=== PATIENT | male | born 1960 | race African-American/Black ===

== ENCOUNTER 2020-04-26 14:14 | Inpatient (IN) | payer MEDICARE, BC ==
[~2020-04-26] VITALS: Ht 185.4 cm; Wt 114.6 kg
[~2020-04-26 14:14] MED LIST: ALBU6.7H11 INH; AMIODARONE PO; ATOR20TA65 PO; BISA-81 PO; BISACODYL; FOLI-43 PO; FURO80TA3 PO; MAGN400C PO; METF-416 PO; METO-411 PO; SERT25TA74 PO; SPIR25TA6 PO; VALS80TA2 PO
[2020-04-26 14:53] LABS: BASOPHILS % 0.6 % (0.0-2.0); EOSINOPHILS % 2.9 % (0.0-5.0); HEMATOCRIT. 31.2 % (42.0-52.0); HEMOGLOBIN. 10.5 g/dL (14.0-18.0); LYMPHOCYTES % 10.9 % (20.0-50.0); MEAN CORPUSCULAR HEMOGLOBIN 30.6 pg (28.0-32.0); MEAN CORPUSCULAR VOLUME 91.3 fL (80.0-94.0); MEAN PLATELET VOLUME 8.4 fl (7.4-10.4); MONOCYTES % 9.6 % (2.0-8.0); PLATELET 137 x1000/uL (130-400); RED BLOOD CELL COUNT 3.42 mill/uL (4.7-6.1); RED CELL DISTRIBUTION WIDTH 15.9 % (11.6-14.6)
[2020-04-26 14:59] LABS: CHLORIDE 98 mEq/L (98-107)
[2020-04-26] MEDS ORDERED: SODIUM CHLORIDE 0.9% 1,000 ML IV ONE (15:00)
[2020-04-26 15:40] LABS: INR 1.1; PROTHROMBIN TIME 12.1 sec (9.6-11.0)
[2020-04-26] MEDS ORDERED: PIPERACILLIN/TAZ 3.375G PREMIX 50 ML IV ONE (16:00)
[2020-04-26] MEDS ORDERED: VANCOMYCIN 1 G PREMIX 200 ML IV ONE (16:00)
[2020-04-26] MEDS ORDERED: NOREPINEPHRINE 8MG/250ML PMX 250 ML IV STA (16:02)
[2020-04-26] MEDS: NOREPINEPHRINE 8 MG in DEXTROSE 5% WATER 250 ML IV PRN ×2 (17:09→22:57)
[2020-04-26 17:12] LABS: CLARITY URINE CLEAR (CLEAR); COLOR URINE YELLOW (YELLOW); KETONES URINE NEGATIVE (NEGATIVE); LEUKOCYTE ESTERASE URINE NEGATIVE (NEGATIVE); NITRITE URINE NEGATIVE (NEGATIVE); OCCULT BLOOD URINE NEGATIVE (NEGATIVE); PH URINE 6.5 (4.5-8.0); PROTEIN URINE NEGATIVE (NEGATIVE); SPECIFIC GRAVITY URINE 1.011 (1.005-1.030)
[2020-04-26] MEDS ORDERED: POTASSIUM CHLORIDE 20MEQ TABLET SR PO SCH (23:15)
[2020-04-26] MEDS ORDERED: ONDANSETRON HCL 4MG/2ML INJ IV PRN (23:15)
[2020-04-26] MEDS ORDERED: IPRATROPIUM/ALBUTEROL 0.5-3(2.5)MG/3ML NEB HHN PRN (23:15)
[2020-04-26] MEDS ORDERED: MAGNESIUM/ALUMINUM HYDROXIDE/SIMETHICONE 30ML UDC PO PRN (23:15)
[2020-04-26] MEDS ORDERED: DOCUSATE SODIUM 100MG CAPSULE PO PRN (23:15)
[2020-04-26] MEDS ORDERED: ENOXAPARIN 40MG/0.4ML SYR SUBCUT SCH (23:15)
[2020-04-26] MEDS ORDERED: ACETAMINOPHEN 325MG TABLET PO PRN (23:15)
[2020-04-27] VITALS (56 sets, daily range): BP systolic 63–126; BP diastolic 18–79
[2020-04-27] MEDS: HYDROCODONE/ACETAMINOPHEN 5/325MG TABLET PO PRN (01:38)
[2020-04-27] MEDS: NOREPINEPHRINE 8 MG in DEXTROSE 5% WATER 250 ML IV PRN (04:41)
[2020-04-27 06:36] LABS: BASOPHILS % 0.5 % (0.0-2.0); EOSINOPHILS % 2.3 % (0.0-5.0); HEMATOCRIT. 32.9 % (42.0-52.0); LYMPHOCYTES % 16.7 % (20.0-50.0); MEAN CORPUSCULAR HEMOGLOBIN 30.4 pg (28.0-32.0); MONOCYTES % 9.2 % (2.0-8.0); NEUTROPHILS % 71.3 % (40.0-76.0); PLATELET 145 x1000/uL (130-400); RED BLOOD CELL COUNT 3.61 mill/uL (4.7-6.1); RED CELL DISTRIBUTION WIDTH 15.8 % (11.6-14.6)
[2020-04-27 06:54] LABS: CREATINE KINASE MB FRACTION 1.5 ng/mL (0.5-3.6)
[2020-04-27] MEDS ORDERED: ENOXAPARIN 40MG/0.4ML SYR SUBCUT SCH (09:00)
[2020-04-27] MEDS ORDERED: NOREPINEPHRINE 8MG/250ML PMX 250 ML IV PRN (09:30)
[2020-04-27 09:37] LABS: *BENZODIAZEPINES SCREEN URINE NEGATIVE (NEGATIVE); *COCAINE SCREEN URINE NEGATIVE (NEGATIVE); METHADONE URINE SCREEN NEGATIVE (NEGATIVE)
[2020-04-27 09:38] LABS: *AMPHETAMINES SCREEN URINE NEGATIVE (NEGATIVE); *BARBITURATES SCREEN URINE NEGATIVE (NEGATIVE); CANNABINOID URINE SCREEN NEGATIVE (NEGATIVE); OPIATES URINE SCREEN NEGATIVE (NEGATIVE); PHENCYCLIDINE URINE SCREEN NEGATIVE (NEGATIVE)
[2020-04-27] MEDS ORDERED: SODIUM CHLORIDE 0.9% 1,000 ML IV SCH (10:15)
[2020-04-27] MEDS: NOREPINEPHRINE 8 MG in DEXT 5% WATER 242 ML IV PRN ×2 (10:34→18:37)
[2020-04-27] MEDS ORDERED: MAGNESIUM 2 G PREMIX 50 ML IV NR (11:00)
[2020-04-27 15:06] LABS: CHLORIDE 100 mEq/L (98-107)
[2020-04-27] MEDS ORDERED: ENOXAPARIN 60MG/0.6ML SYR SUBCUT NR (15:15)
[2020-04-27] MEDS: MEXILETINE HCL 150MG CAPSULE PO SCH ×2 (17:19→21:22)
[2020-04-27] MEDS: ENOXAPARIN 120MG/0.8ML SYR SUBCUT SCH (21:23)
[2020-04-28] VITALS (150 sets, daily range): BP systolic 61–149; BP diastolic 19–99
[2020-04-28] MEDS: MEXILETINE HCL 150MG CAPSULE PO SCH ×3 (05:44→21:05)
[2020-04-28 06:07] LABS: BASOPHILS % 0.4 % (0.0-2.0); EOSINOPHILS % 5.4 % (0.0-5.0); HEMATOCRIT. 30.5 % (42.0-52.0); HEMOGLOBIN. 10.3 g/dL (14.0-18.0); LYMPHOCYTES % 20.4 % (20.0-50.0); MEAN CORPUSCULAR VOLUME 91.7 fL (80.0-94.0); MEAN PLATELET VOLUME 8.7 fl (7.4-10.4); MONOCYTES % 9.2 % (2.0-8.0); NEUTROPHILS % 64.6 % (40.0-76.0); PLATELET 130 x1000/uL (130-400); RED BLOOD CELL COUNT 3.33 mill/uL (4.7-6.1); RED CELL DISTRIBUTION WIDTH 15.9 % (11.6-14.6)
[2020-04-28] MEDS: AMIODARONE HCL 200 MG TABLET PO SCH (09:44)
[2020-04-28] MEDS: ENOXAPARIN 120MG/0.8ML SYR SUBCUT SCH ×2 (09:44→20:38)
[2020-04-28] MEDS ORDERED: SODIUM PHOS,M-BASIC-D-BASIC 20 MM in DEXT 5% WATER 243.3333 ML IV SCH (11:00)
[2020-04-28] MEDS: HYDROCODONE/ACETAMINOPHEN 5/325MG TABLET PO PRN (18:00)
[2020-04-29] VITALS (62 sets, daily range): BP systolic 89–142; BP diastolic 51–110
[2020-04-29] MEDS: HYDROCODONE/ACETAMINOPHEN 5/325MG TABLET PO PRN ×4 (00:18→20:10)
[2020-04-29] MEDS: MEXILETINE HCL 150MG CAPSULE PO SCH ×3 (05:12→21:31)
[2020-04-29 06:40] LABS: BASOPHILS % 0.4 % (0.0-2.0); EOSINOPHILS % 6.5 % (0.0-5.0); HEMATOCRIT. 28.7 % (42.0-52.0); HEMOGLOBIN. 9.7 g/dL (14.0-18.0); LYMPHOCYTES % 21.6 % (20.0-50.0); MEAN CORPUSCULAR HEMOGLOBIN 31.1 pg (28.0-32.0); MEAN PLATELET VOLUME 8.7 fl (7.4-10.4); MONOCYTES % 12.2 % (2.0-8.0); NEUTROPHILS % 59.3 % (40.0-76.0); PLATELET 136 x1000/uL (130-400); RED BLOOD CELL COUNT 3.12 mill/uL (4.7-6.1); RED CELL DISTRIBUTION WIDTH 15.9 % (11.6-14.6)
[2020-04-29 07:06] LABS: PHOSPHORUS 2.8 mg/dL (2.5-4.9)
[2020-04-29] MEDS: AMIODARONE HCL 200 MG TABLET PO SCH (08:49)
[2020-04-29] MEDS: ENOXAPARIN 120MG/0.8ML SYR SUBCUT SCH ×2 (09:04→20:09)
[2020-04-29] MEDS: CYCLOBENZAPRINE 10MG TABLET PO SCH ×2 (13:10→21:31)
[2020-04-30] VITALS (26 sets, daily range): BP systolic 89–122; BP diastolic 51–76
[2020-04-30] MEDS: MEXILETINE HCL 150MG CAPSULE PO SCH (05:27)
[2020-04-30] MEDS: CYCLOBENZAPRINE 10MG TABLET PO SCH (05:39)
[2020-04-30 07:09] LABS: PHOSPHORUS 2.4 mg/dL (2.5-4.9)
[2020-04-30 09:35] LABS: BASOPHILS % 0.8 % (0.0-2.0); EOSINOPHILS % 4.4 % (0.0-5.0); HEMATOCRIT. 27.8 % (42.0-52.0); MEAN CORPUSCULAR HEMOGLOBIN 30.7 pg (28.0-32.0); MEAN CORPUSCULAR VOLUME 94.4 fL (80.0-94.0); MEAN PLATELET VOLUME 8.9 fl (7.4-10.4); MONOCYTES % 14.1 % (2.0-8.0); NEUTROPHILS % 59.7 % (40.0-76.0); PLATELET 127 x1000/uL (130-400); RED BLOOD CELL COUNT 2.94 mill/uL (4.7-6.1); RED CELL DISTRIBUTION WIDTH 15.7 % (11.6-14.6)
[2020-05-11] MEDS ORDERED: SERT25TA74 PO (11:23)
== END 2020-04-30 06:00 | disposition short-term general hospital (02) | DRG 308 ==
LOC: ER 14:37 → MICUSO 16:05 → EDBEDREQTM 16:07 → EDBEDREQ 16:07 → EDBEDREQSVC 18:30 → 5EST 04-27 08:10
PROVIDERS: ADMIT Internal Medicine; ATTEND Internal Medicine
PROC: 06HY33Z Insertion of Infusion Device into Lower Vein, Percutaneous Approach (ICD-10-PCS; principal; 2020-04-26)
PROC: 4B02XTZ Measurement of Cardiac Defibrillator, External Approach (ICD-10-PCS; 2020-04-27)
DX: I47.2 Ventricular tachycardia (principal); R57.0 Cardiogenic shock; N17.9 Acute kidney failure, unspecified; I69.351 Hemiplegia and hemiparesis following cerebral infarction affecting right dominant side; I50.22 Chronic systolic (congestive) heart failure; I13.0 Hypertensive heart and chronic kidney disease with heart failure and stage 1 through stage 4 chronic kidney disease, or unspecified chronic kidney disease; E87.1 Hypo-osmolality and hyponatremia; I42.0 Dilated cardiomyopathy; I49.01 Ventricular fibrillation; I46.2 Cardiac arrest due to underlying cardiac condition; I48.21 Permanent atrial fibrillation; J45.909 Unspecified asthma, uncomplicated; I48.92 Unspecified atrial flutter; D64.9 Anemia, unspecified; E87.6 Hypokalemia; N18.30 Chronic kidney disease, stage 3 unspecified; E83.42 Hypomagnesemia; E11.22 Type 2 diabetes mellitus with diabetic chronic kidney disease; I25.10 Atherosclerotic heart disease of native coronary artery without angina pectoris; I25.2 Old myocardial infarction; Z76.82 Awaiting organ transplant status; Z79.899 Other long term (current) drug therapy; Z95.810 Presence of automatic (implantable) cardiac defibrillator
CPT/HCPCS: 36415; 71045; 76770; 80048; 80053; 80061; 80305; 81003; 82550; 82553; 83605; 83735; 83880; 84100; 84132; 84145; 84443; 84484; 85025; 93005; 93306; 93970; 97162; 99291; J1650; J2543; J3370; J3475; J3490; J7040; J7042; J7060; A4315

== ENCOUNTER 2020-05-08 16:45 | Inpatient (IN) | payer MEDICARE, BC ==
[~2020-05-08] VITALS: Ht 188 cm; Wt 115.7 kg
[2020-05-08] MEDS ORDERED: SODIUM CHLORIDE 0.9% 1,000 ML IV ONE (17:00)
[2020-05-08] MEDS ORDERED: TETANUS, DIPHTHERIA, PERTUSSIS VAC/PF 0.5ML (>7YR OLD) IM ONE (17:30)
[2020-05-08 17:40] LABS: BASOPHILS % 0.5 % (0.0-2.0); HEMATOCRIT. 23.7 % (42.0-52.0); HEMOGLOBIN. 7.9 g/dL (14.0-18.0); MEAN CORPUSCULAR HEMOGLOBIN 30.6 pg (28.0-32.0); MEAN CORPUSCULAR VOLUME 91.3 fL (80.0-94.0); MEAN PLATELET VOLUME 7.3 fl (7.4-10.4); MONOCYTES % 10.5 % (2.0-8.0); PLATELET 332 x1000/uL (130-400); RED BLOOD CELL COUNT 2.59 mill/uL (4.7-6.1)
[2020-05-08 17:42] LABS: BG BASE EXCESS -0.5 mmol/L (-2.0-2.0); BG CARBOXYHEMOGLOBIN 2.9 % (0.5-1.5); BG DEOXYHEMOGLOBIN 8.4 % (0.0-5.0); BG FRACTION INSPIRED OXYGEN 21; BG HCO3 ACT 25.2 mmol/L (22.0-26.0); BG METHEMOGLOBIN 0.3 % (0.0-1.5); BG OXYGEN SATURATION 91.3 % (92.0-98.5); BG OXYHEMOGLOBIN 88.4 % (94.0-97.0); BG PCO2 46.2 mmHg (35.0-45.0); BG PH 7.354 (7.350-7.450); BG PO2 63.9 mmHg (75.0-100.0); BG SAMPLE SITE RIGHT RADIAL; BG TOTAL HEMOGLOBIN 9.7 g/dL (12.0-18.0); BG VENT MODE ROOM AIR
[2020-05-08 17:49] LABS: CHLORIDE 102 mEq/L (98-107)
[2020-05-08 17:55] LABS: ETHANOL BLOOD < 10 mg/dL
[2020-05-09 06:38] LABS: CLARITY URINE CLEAR (CLEAR); COLOR URINE YELLOW (YELLOW); KETONES URINE NEGATIVE (NEGATIVE); LEUKOCYTE ESTERASE URINE NEGATIVE (NEGATIVE); NITRITE URINE NEGATIVE (NEGATIVE); OCCULT BLOOD URINE NEGATIVE (NEGATIVE); PROTEIN URINE TRACE (NEGATIVE); SPECIFIC GRAVITY URINE 1.017 (1.005-1.030)
[2020-05-09 06:54] LABS: CANNABINOID URINE SCREEN NEGATIVE (NEGATIVE)
[2020-05-09 06:55] LABS: *AMPHETAMINES SCREEN URINE PRESUMTIVE POSITIVE (NEGATIVE); *BENZODIAZEPINES SCREEN URINE NEGATIVE (NEGATIVE); *COCAINE SCREEN URINE NEGATIVE (NEGATIVE); METHADONE URINE SCREEN NEGATIVE (NEGATIVE); OPIATES URINE SCREEN PRESUMTIVE POSITIVE (NEGATIVE)
[2020-05-09 06:56] LABS: *BARBITURATES SCREEN URINE NEGATIVE (NEGATIVE); PHENCYCLIDINE URINE SCREEN NEGATIVE (NEGATIVE)
[2020-05-09 08:10] VITALS: BP 100/64
[2020-05-09 09:00] VITALS: BP 100/64
[2020-05-09] MEDS ORDERED: POTASSIUM CHLORIDE 20MEQ TABLET SR PO NR (09:30)
[2020-05-09 11:50] VITALS: BP 94/63
[2020-05-09 12:01] LABS: BASOPHILS % 0.8 % (0.0-2.0); EOSINOPHILS % 5.3 % (0.0-5.0); HEMOGLOBIN. 7.8 g/dL (14.0-18.0); LYMPHOCYTES % 15.4 % (20.0-50.0); MEAN CORPUSCULAR HEMOGLOBIN 31.3 pg (28.0-32.0); MEAN PLATELET VOLUME 7.3 fl (7.4-10.4); MONOCYTES % 10.7 % (2.0-8.0); NEUTROPHILS % 67.8 % (40.0-76.0); PLATELET 326 x1000/uL (130-400); RED CELL DISTRIBUTION WIDTH 16.1 % (11.6-14.6)
[2020-05-09 12:56] LABS: CHLORIDE 105 mEq/L (98-107)
[2020-05-09 15:47] LABS: TOTAL IRON BINDING CAPACITY 213 ug/dL (250-450)
[2020-05-09 16:00] VITALS: BP 99/68
[2020-05-09 20:00] VITALS: BP 115/64
[2020-05-10] VITALS (7 sets, daily range): BP systolic 91–137; BP diastolic 55–108
[2020-05-10 09:43] LABS: BASOPHILS % 0.7 % (0.0-2.0); EOSINOPHILS % 6.3 % (0.0-5.0); HEMATOCRIT. 22.4 % (42.0-52.0); HEMOGLOBIN. 7.5 g/dL (14.0-18.0); LYMPHOCYTES % 26.5 % (20.0-50.0); MEAN CORPUSCULAR HEMOGLOBIN 30.7 pg (28.0-32.0); MEAN PLATELET VOLUME 7.2 fl (7.4-10.4); MONOCYTES % 12.4 % (2.0-8.0); NEUTROPHILS % 54.1 % (40.0-76.0); PLATELET 318 x1000/uL (130-400); RED BLOOD CELL COUNT 2.43 mill/uL (4.7-6.1)
[2020-05-10 14:03] LABS: CREATINE KINASE 205 IU/L (39-308)
[2020-05-10] MEDS ORDERED: LORAZEPAM 0.5MG TABLET PO PRN (14:15)
[2020-05-10] MEDS: CITALOPRAM HYDROBROMIDE 10MG TABLET PO SCH (14:43)
[2020-05-10] MEDS: SODIUM CHLORIDE 0.9% 1,000 ML IV SCH (14:43)
[2020-05-11 04:00] VITALS: BP 115/70
[2020-05-11 07:13] LABS: HEMATOCRIT. 23.2 % (42.0-52.0); MEAN CORPUSCULAR HEMOGLOBIN 31.7 pg (28.0-32.0); MEAN CORPUSCULAR VOLUME 91.7 fL (80.0-94.0); MEAN PLATELET VOLUME 7.2 fl (7.4-10.4); PLATELET 281 x1000/uL (130-400); RED BLOOD CELL COUNT 2.53 mill/uL (4.7-6.1); RED CELL DISTRIBUTION WIDTH 16.4 % (11.6-14.6)
[2020-05-11 07:51] LABS: PHOSPHORUS 2.3 mg/dL (2.5-4.9)
[2020-05-11 08:00] VITALS: BP_SYST 95; BP_SYST 96; BP_DIAS 66; BP_DIAS 67
[2020-05-11] MEDS: CITALOPRAM HYDROBROMIDE 10MG TABLET PO SCH (08:39)
[2020-05-11] MEDS: POTASSIUM-SODIUM PHOSPHATE POWDER PACKET PO SCH ×2 (10:42→17:25)
[2020-05-11] MEDS ORDERED: SERT25TA74 PO ×2 (11:23)
[2020-05-11] MEDS ORDERED: SENNOSIDES/DOCUSATE SOD 8.6/50MG TABLET PO PRN (11:30)
[2020-05-11] MEDS ORDERED: DOCUSATE SODIUM 100MG CAPSULE PO PRN (11:30)
[2020-05-11] MEDS ORDERED: MAGNESIUM HYDROXIDE 400MG/5ML 30ML UDC PO PRN (11:30)
[2020-05-11] MEDS: SODIUM CHLORIDE 0.9% 1,000 ML IV SCH ×2 (11:33→15:49)
[2020-05-11 12:00] VITALS: BP 109/78
[2020-05-11 15:25] LABS: PLATELET ESTIMATE NORMAL
[2020-05-11 16:00] VITALS: BP 110/90
[2020-05-11 20:00] VITALS: BP 109/72
[2020-05-12] VITALS: BP 105/73
[2020-05-12 04:00] VITALS: BP 101/74
[2020-05-12] MEDS: CITALOPRAM HYDROBROMIDE 10MG TABLET PO SCH (08:09)
[2020-05-12] MEDS: POTASSIUM-SODIUM PHOSPHATE POWDER PACKET PO SCH ×2 (08:09→17:07)
[2020-05-12 08:14] LABS: BASOPHILS % 0.5 % (0.0-2.0); EOSINOPHILS % 6.5 % (0.0-5.0); HEMATOCRIT. 21.5 % (42.0-52.0); HEMOGLOBIN. 7.3 g/dL (14.0-18.0); LYMPHOCYTES % 25.4 % (20.0-50.0); MEAN CORPUSCULAR HEMOGLOBIN 31.5 pg (28.0-32.0); MEAN CORPUSCULAR VOLUME 92.6 fL (80.0-94.0); MEAN PLATELET VOLUME 7.2 fl (7.4-10.4); MONOCYTES % 14.8 % (2.0-8.0); NEUTROPHILS % 52.8 % (40.0-76.0); PLATELET 260 x1000/uL (130-400); RED BLOOD CELL COUNT 2.32 mill/uL (4.7-6.1); RED CELL DISTRIBUTION WIDTH 16.3 % (11.6-14.6)
[2020-05-12 08:35] LABS: PHOSPHORUS 2.6 mg/dL (2.5-4.9)
[2020-05-12 08:55] VITALS: BP 102/72
[2020-05-12] MEDS: FOLIC ACID 1MG TABLET PO SCH (10:58)
[2020-05-12] MEDS ORDERED: MAGNESIUM 2 G PREMIX 50 ML IV SCH (12:00)
[2020-05-12 12:18] VITALS: BP 95/51
[2020-05-12] MEDS: FERROUS SULFATE 325MG TABLET PO SCH ×2 (13:23→17:08)
[2020-05-12] MEDS ORDERED: MEXILETINE HCL 150MG CAPSULE PO SCH (16:00)
[2020-05-12 17:00] VITALS: BP 99/58
[2020-05-12] MEDS ORDERED: AMIODARONE HCL 200 MG TABLET PO SCH (17:00)
[2020-05-12] MEDS ORDERED: MEXILETINE HCL 150MG CAPSULE PO ONE (19:00)
[2020-05-12 20:00] VITALS: BP 101/74
[2020-05-12] MEDS ORDERED: CARVEDILOL 3.125 MG TABLET PO SCH (21:00)
[2020-05-12] MEDS: MEXILETINE HCL 200 MG CAPSULE PO SCH (22:00)
[2020-05-12] MEDS: ATORVASTATIN CALCIUM 20MG TABLET PO SCH (22:20)
[2020-05-13] VITALS: BP 110/67
[2020-05-13 04:00] VITALS: BP 105/69
[2020-05-13] MEDS: MEXILETINE HCL 200 MG CAPSULE PO SCH (05:25)
[2020-05-13 06:52] LABS: HEMATOCRIT. 22.2 % (42.0-52.0); HEMOGLOBIN. 7.5 g/dL (14.0-18.0); MEAN CORPUSCULAR HEMOGLOBIN 31.5 pg (28.0-32.0); MEAN CORPUSCULAR VOLUME 92.8 fL (80.0-94.0); MEAN PLATELET VOLUME 7.1 fl (7.4-10.4); PLATELET 244 x1000/uL (130-400); RED BLOOD CELL COUNT 2.39 mill/uL (4.7-6.1); RED CELL DISTRIBUTION WIDTH 16.9 % (11.6-14.6)
[2020-05-13 07:29] LABS: PHOSPHORUS 2.4 mg/dL (2.5-4.9)
[2020-05-13 08:00] VITALS: BP 105/67
[2020-05-13] MEDS: CITALOPRAM HYDROBROMIDE 10MG TABLET PO SCH (08:23)
[2020-05-13] MEDS: AMIODARONE HCL 200 MG TABLET PO SCH (08:23)
[2020-05-13] MEDS: FERROUS SULFATE 325MG TABLET PO SCH ×3 (08:23→17:07)
[2020-05-13] MEDS: POTASSIUM-SODIUM PHOSPHATE POWDER PACKET PO SCH ×2 (08:23→17:07)
[2020-05-13] MEDS: FOLIC ACID 1MG TABLET PO SCH (08:24)
[2020-05-13] MEDS ORDERED: SODIUM PHOS,M-BASIC-D-BASIC 15 MM in DEXT 5% WATER 245 ML IV NR (11:00)
[2020-05-13 12:00] VITALS: BP 101/59
[2020-05-13] MEDS: MEXILETINE HCL 150MG CAPSULE PO SCH ×2 (13:21→21:11)
[2020-05-13 16:00] VITALS: BP 98/60
[2020-05-13 20:00] VITALS: BP 109/74
[2020-05-13] MEDS: ATORVASTATIN CALCIUM 20MG TABLET PO SCH (21:11)
[2020-05-13 22:00] LABS: PLATELET ESTIMATE NORMAL
[2020-05-14] VITALS: BP 104/74
[2020-05-14 04:00] VITALS: BP 96/62
[2020-05-14] MEDS: MEXILETINE HCL 150MG CAPSULE PO SCH ×3 (06:07→21:09)
[2020-05-14 07:53] VITALS: BP 128/94
[2020-05-14 08:21] LABS: HEMATOCRIT. 21.9 % (42.0-52.0); HEMOGLOBIN. 7.3 g/dL (14.0-18.0); MEAN CORPUSCULAR HEMOGLOBIN 31.2 pg (28.0-32.0); MEAN CORPUSCULAR VOLUME 93.9 fL (80.0-94.0); MEAN PLATELET VOLUME 7.3 fl (7.4-10.4); PLATELET 214 x1000/uL (130-400); RED BLOOD CELL COUNT 2.33 mill/uL (4.7-6.1); RED CELL DISTRIBUTION WIDTH 16.9 % (11.6-14.6)
[2020-05-14] MEDS: FOLIC ACID 1MG TABLET PO SCH (08:35)
[2020-05-14] MEDS: CITALOPRAM HYDROBROMIDE 10MG TABLET PO SCH (08:35)
[2020-05-14] MEDS: FERROUS SULFATE 325MG TABLET PO SCH ×3 (08:35→17:39)
[2020-05-14] MEDS: POTASSIUM-SODIUM PHOSPHATE POWDER PACKET PO SCH ×2 (08:35→17:39)
[2020-05-14] MEDS: AMIODARONE HCL 200 MG TABLET PO SCH (08:38)
[2020-05-14 09:22] LABS: PHOSPHORUS 3.3 mg/dL (2.5-4.9)
[2020-05-14 11:42] VITALS: BP 132/88
[2020-05-14] MEDS ORDERED: CITALOPRAM HYDROBROMIDE 10MG TABLET PO NR (13:00)
[2020-05-14] MEDS: PSYLLIUM SEED PACKET PO SCH ×2 (13:49→17:39)
[2020-05-14 16:45] VITALS: BP 124/78
[2020-05-14 17:52] LABS: PLATELET ESTIMATE NORMAL
[2020-05-14 20:00] VITALS: BP 112/75
[2020-05-14] MEDS ORDERED: ZOLPIDEM TARTRATE 5MG TABLET PO PRN (21:00)
[2020-05-14] MEDS: ATORVASTATIN CALCIUM 20MG TABLET PO SCH (21:05)
[2020-05-15] VITALS: BP 109/77
[2020-05-15 04:00] VITALS: BP 102/75
[2020-05-15] MEDS: MEXILETINE HCL 150MG CAPSULE PO SCH ×3 (05:33→21:09)
[2020-05-15 06:50] LABS: HEMOGLOBIN. 7.2 g/dL (14.0-18.0); MEAN CORPUSCULAR HEMOGLOBIN 30.7 pg (28.0-32.0); MEAN CORPUSCULAR VOLUME 93.6 fL (80.0-94.0); MEAN PLATELET VOLUME 7.6 fl (7.4-10.4); PLATELET 215 x1000/uL (130-400); RED BLOOD CELL COUNT 2.35 mill/uL (4.7-6.1); RED CELL DISTRIBUTION WIDTH 16.2 % (11.6-14.6)
[2020-05-15 07:36] LABS: PHOSPHORUS 2.7 mg/dL (2.5-4.9)
[2020-05-15 08:00] VITALS: BP 138/79
[2020-05-15] MEDS: FOLIC ACID 1MG TABLET PO SCH (10:01)
[2020-05-15] MEDS: FERROUS SULFATE 325MG TABLET PO SCH ×3 (10:01→18:33)
[2020-05-15] MEDS: AMIODARONE HCL 200 MG TABLET PO SCH (10:02)
[2020-05-15] MEDS: PSYLLIUM SEED PACKET PO SCH ×3 (10:02→17:00)
[2020-05-15] MEDS: CITALOPRAM HYDROBROMIDE 10MG TABLET PO SCH (10:21)
[2020-05-15] MEDS: POTASSIUM-SODIUM PHOSPHATE POWDER PACKET PO SCH ×2 (10:21→18:33)
[2020-05-15 12:00] VITALS: BP 104/78
[2020-05-15] MEDS ORDERED: DEXTROSE 50% WATER 50ML SYRINGE IV PRN (12:00)
[2020-05-15 14:22] LABS: PLATELET ESTIMATE NORMAL
[2020-05-15 16:00] VITALS: BP 108/76
[2020-05-15 19:54] VITALS: BP 107/73
[2020-05-15] MEDS: ATORVASTATIN CALCIUM 20MG TABLET PO SCH (21:01)
[2020-05-16] VITALS: BP 105/76
[2020-05-16 04:00] VITALS: BP 100/71
[2020-05-16] MEDS: MEXILETINE HCL 150MG CAPSULE PO SCH ×3 (05:35→21:10)
[2020-05-16 08:00] VITALS: BP 106/73
[2020-05-16 08:08] LABS: PHOSPHORUS 2.2 mg/dL (2.5-4.9)
[2020-05-16] MEDS: PSYLLIUM SEED PACKET PO SCH ×3 (09:00→16:39)
[2020-05-16 09:32] LABS: HEMATOCRIT. 21.7 % (42.0-52.0); HEMOGLOBIN. 7.2 g/dL (14.0-18.0); MEAN CORPUSCULAR HEMOGLOBIN 30.5 pg (28.0-32.0); MEAN CORPUSCULAR VOLUME 92.1 fL (80.0-94.0); MEAN PLATELET VOLUME 7.6 fl (7.4-10.4); PLATELET 200 x1000/uL (130-400); RED BLOOD CELL COUNT 2.36 mill/uL (4.7-6.1); RED CELL DISTRIBUTION WIDTH 16.4 % (11.6-14.6)
[2020-05-16] MEDS: AMIODARONE HCL 200 MG TABLET PO SCH (10:04)
[2020-05-16] MEDS: FOLIC ACID 1MG TABLET PO SCH (10:05)
[2020-05-16] MEDS: POTASSIUM-SODIUM PHOSPHATE POWDER PACKET PO SCH ×2 (10:05→16:39)
[2020-05-16] MEDS: FERROUS SULFATE 325MG TABLET PO SCH ×3 (10:05→16:38)
[2020-05-16] MEDS: CITALOPRAM HYDROBROMIDE 10MG TABLET PO SCH (10:05)
[2020-05-16] MEDS ORDERED: POTASSIUM PHOS,M-BASIC-D-BASIC 15 MMOL in DEXT 5% WATER 245 ML IV ONE (10:30)
[2020-05-16] MEDS: LEVOFLOXACIN 500MG TABLET PO SCH (11:23)
[2020-05-16 12:15] VITALS: BP 117/82
[2020-05-16] MEDS ORDERED: DOCUSATE SODIUM 250MG CAPSULE PO SCH (15:45)
[2020-05-16] MEDS ORDERED: DOCUSATE SODIUM 250MG CAPSULE PO PRN (15:45)
[2020-05-16 16:00] VITALS: BP 109/81
[2020-05-16 18:28] LABS: PLATELET ESTIMATE NORMAL
[2020-05-16 20:00] VITALS: BP 96/74
[2020-05-16] MEDS: ATORVASTATIN CALCIUM 20MG TABLET PO SCH (21:06)
[2020-05-17] VITALS (8 sets, daily range): BP systolic 101–136; BP diastolic 57–97
[2020-05-17] MEDS: MEXILETINE HCL 150MG CAPSULE PO SCH ×3 (05:57→21:30)
[2020-05-17 06:31] LABS: PHOSPHORUS 2.1 mg/dL (2.5-4.9)
[2020-05-17] MEDS: FERROUS SULFATE 325MG TABLET PO SCH ×3 (07:53→17:21)
[2020-05-17] MEDS: RISPERIDONE 1MG TABLET PO SCH (07:53)
[2020-05-17 07:55] LABS: HEMATOCRIT. 21.4 % (42.0-52.0); HEMOGLOBIN. 7.2 g/dL (14.0-18.0); MEAN CORPUSCULAR HEMOGLOBIN 30.7 pg (28.0-32.0); MEAN CORPUSCULAR VOLUME 91.4 fL (80.0-94.0); MEAN PLATELET VOLUME 7.4 fl (7.4-10.4); PLATELET 186 x1000/uL (130-400); RED BLOOD CELL COUNT 2.34 mill/uL (4.7-6.1); RED CELL DISTRIBUTION WIDTH 16.4 % (11.6-14.6)
[2020-05-17] MEDS: POTASSIUM-SODIUM PHOSPHATE POWDER PACKET PO SCH ×2 (08:58→16:34)
[2020-05-17] MEDS: AMIODARONE HCL 200 MG TABLET PO SCH (08:58)
[2020-05-17] MEDS: PSYLLIUM SEED PACKET PO SCH ×3 (08:58→16:34)
[2020-05-17] MEDS: CITALOPRAM HYDROBROMIDE 10MG TABLET PO SCH (08:59)
[2020-05-17] MEDS: FOLIC ACID 1MG TABLET PO SCH (09:32)
[2020-05-17] MEDS ORDERED: ACETAMINOPHEN 325MG TABLET PO PRN (11:45)
[2020-05-17] MEDS: LEVOFLOXACIN 500MG TABLET PO SCH (11:55)
[2020-05-17] MEDS ORDERED: MAGNESIUM 2 G PREMIX 50 ML IV NR (12:00)
[2020-05-17] MEDS ORDERED: POTASSIUM PHOS,M-BASIC-D-BASIC 20 MMOL in DEXT 5% WATER 243.3333 ML IV NR (12:00)
[2020-05-17] MEDS ORDERED: POTASSIUM CHLORIDE 20MEQ TABLET SR PO SCH (12:30)
[2020-05-17] MEDS: FUROSEMIDE 40MG/4ML VIAL IVP SCH (18:23)
[2020-05-17 21:13] LABS: PLATELET ESTIMATE NORMAL
[2020-05-17] MEDS: ATORVASTATIN CALCIUM 20MG TABLET PO SCH (21:25)
[2020-05-18] VITALS (9 sets, daily range): BP systolic 97–116; BP diastolic 59–80
[2020-05-18] MEDS: MEXILETINE HCL 150MG CAPSULE PO SCH ×3 (06:13→22:49)
[2020-05-18 06:55] LABS: PHOSPHORUS 2.4 mg/dL (2.5-4.9)
[2020-05-18 07:30] LABS: MEAN CORPUSCULAR HEMOGLOBIN 30.2 pg (28.0-32.0); MEAN CORPUSCULAR VOLUME 91.9 fL (80.0-94.0); MEAN PLATELET VOLUME 7.6 fl (7.4-10.4); PLATELET 183 x1000/uL (130-400); RED BLOOD CELL COUNT 2.23 mill/uL (4.7-6.1); RED CELL DISTRIBUTION WIDTH 16.3 % (11.6-14.6)
[2020-05-18 07:47] LABS: HEMATOCRIT. 20.5 % (42.0-52.0); HEMOGLOBIN. 6.7 g/dL (14.0-18.0)
[2020-05-18] MEDS: FOLIC ACID 1MG TABLET PO SCH (08:36)
[2020-05-18] MEDS: RISPERIDONE 1MG TABLET PO SCH (08:36)
[2020-05-18] MEDS: FERROUS SULFATE 325MG TABLET PO SCH ×3 (08:36→19:18)
[2020-05-18] MEDS: CITALOPRAM HYDROBROMIDE 10MG TABLET PO SCH (08:36)
[2020-05-18] MEDS: POTASSIUM-SODIUM PHOSPHATE POWDER PACKET PO SCH ×2 (08:37→19:18)
[2020-05-18] MEDS: AMIODARONE HCL 200 MG TABLET PO SCH (08:37)
[2020-05-18] MEDS: PSYLLIUM SEED PACKET PO SCH ×3 (08:37→19:18)
[2020-05-18] MEDS: FUROSEMIDE 40MG/4ML VIAL IVP SCH (08:44)
[2020-05-18] MEDS ORDERED: POTASSIUM CHLORIDE 20MEQ TABLET SR PO NR ×2 (11:00→12:45)
[2020-05-18] MEDS: LEVOFLOXACIN 500MG TABLET PO SCH (12:41)
[2020-05-18] MEDS ORDERED: POTASSIUM CHLORIDE 20MEQ/PACKET PO NR (14:45)
[2020-05-18 16:20] LABS: PLATELET ESTIMATE NORMAL
[2020-05-18] MEDS ORDERED: EPOETIN ALFA-EPBX 10,000 UNIT/ML VIAL SUBCUT NR (21:00)
[2020-05-18] MEDS: ATORVASTATIN CALCIUM 20MG TABLET PO SCH (22:43)
[2020-05-18 23:01] LABS: HEMATOCRIT 22.3 % (42.0-52.0); HEMOGLOBIN 7.6 g/dL (14.0-18.0)
[2020-05-18] MEDS: PANTOPRAZOLE SODIUM 40 MG/VIAL IV SCH (23:58)
[2020-05-19] VITALS: BP 117/70
[2020-05-19 04:00] VITALS: BP 113/76
[2020-05-19] MEDS: MEXILETINE HCL 150MG CAPSULE PO SCH ×3 (06:18→23:02)
[2020-05-19 06:58] LABS: BASOPHILS % 0.9 % (0.0-2.0); EOSINOPHILS % 3.8 % (0.0-5.0); HEMATOCRIT. 22.8 % (42.0-52.0); HEMOGLOBIN. 7.7 g/dL (14.0-18.0); LYMPHOCYTES % 18.5 % (20.0-50.0); MEAN CORPUSCULAR HEMOGLOBIN 30.9 pg (28.0-32.0); MEAN CORPUSCULAR VOLUME 91.7 fL (80.0-94.0); MEAN PLATELET VOLUME 7.6 fl (7.4-10.4); MONOCYTES % 12.8 % (2.0-8.0); PLATELET 178 x1000/uL (130-400); RED BLOOD CELL COUNT 2.49 mill/uL (4.7-6.1); RED CELL DISTRIBUTION WIDTH 16.2 % (11.6-14.6)
[2020-05-19 08:00] VITALS: BP 138/88
[2020-05-19] MEDS: FUROSEMIDE 40MG/4ML VIAL IVP SCH ×3 (08:55→12:10)
[2020-05-19] MEDS: PANTOPRAZOLE SODIUM 40 MG/VIAL IV SCH ×2 (08:55→20:06)
[2020-05-19] MEDS: FOLIC ACID 1MG TABLET PO SCH (08:56)
[2020-05-19] MEDS: RISPERIDONE 1MG TABLET PO SCH (08:56)
[2020-05-19] MEDS: AMIODARONE HCL 200 MG TABLET PO SCH (08:56)
[2020-05-19] MEDS: FERROUS SULFATE 325MG TABLET PO SCH ×3 (08:57→18:09)
[2020-05-19] MEDS: POTASSIUM-SODIUM PHOSPHATE POWDER PACKET PO SCH ×2 (08:58→13:54)
[2020-05-19] MEDS: PSYLLIUM SEED PACKET PO SCH ×3 (08:58→17:00)
[2020-05-19] MEDS: CITALOPRAM HYDROBROMIDE 10MG TABLET PO SCH (09:00)
[2020-05-19 09:06] LABS: SACCHAROMYCES CEREVISIAE IGG 28.5 Units (0.0-24.9); SACCHAROMYCES CEREVISIAE IGM 125.1 Units (0.0-24.9)
[2020-05-19] MEDS ORDERED: IPRATROPIUM BROMIDE (0.02%) 0.5MG/2.5ML NEB HHN PRN (10:45)
[2020-05-19] MEDS ORDERED: DEXT 5%/0.45% NACL 1000ML 1,000 ML IV SCH (10:45)
[2020-05-19] MEDS ORDERED: POTASSIUM PHOS,M-BASIC-D-BASIC 30 MMOL in DEXT 5% WATER 500 ML IV SCH (11:00)
[2020-05-19 12:00] VITALS: BP 128/51
[2020-05-19] MEDS: LEVOFLOXACIN 500MG TABLET PO SCH (12:11)
[2020-05-19 12:40] LABS: INR 1.2; PROTHROMBIN TIME 12.3 sec (9.6-11.0)
[2020-05-19] MEDS: IPRATROPIUM BROMIDE (0.02%) 0.5MG/2.5ML NEB HHN SCH ×2 (12:56→20:59)
[2020-05-19 13:11] LABS: ATYPICAL pANCA <1:20 titer (Neg:<1:20)
[2020-05-19] MEDS ORDERED: FENTANYL CITRATE/PF 50MCG/ML 2ML VIAL ONE ×2 (13:59→14:03)
[2020-05-19] MEDS ORDERED: MIDAZOLAM HCL 2 MG/2 ML VIAL ONE ×2 (13:59→14:03)
[2020-05-19] MEDS ORDERED: LIDOCAINE HCL 1% 20ML VIAL (Pyxis) INJ ONE (14:00)
[2020-05-19] MEDS ORDERED: PROPOFOL 200MG/20ML VIAL IV ONE (14:00)
[2020-05-19] MEDS ORDERED: DIPHENHYDRAMINE 50MG/ML VIAL ONE (14:01)
[2020-05-19 16:00] VITALS: BP 120/75
[2020-05-19 16:02] LABS: BG BASE EXCESS 2.9 mmol/L (-2.0-2.0); BG CARBOXYHEMOGLOBIN 0.3 % (0.5-1.5); BG DEOXYHEMOGLOBIN 3.7 % (0.0-5.0); BG FRACTION INSPIRED OXYGEN 28; BG HCO3 ACT 28.8 mmol/L (22.0-26.0); BG METHEMOGLOBIN 0.4 % (0.0-1.5); BG OXYGEN SATURATION 96.3 % (92.0-98.5); BG OXYHEMOGLOBIN 95.6 % (94.0-97.0); BG PCO2 51.3 mmHg (35.0-45.0); BG PH 7.367 (7.350-7.450); BG PO2 88.4 mmHg (75.0-100.0); BG SAMPLE SITE RIGHT RADIAL; BG TOTAL HEMOGLOBIN 8.9 g/dL (12.0-18.0); BG VENT MODE NASAL CANNULA
[2020-05-19 20:00] VITALS: BP 104/71
[2020-05-19] MEDS: ATORVASTATIN CALCIUM 20MG TABLET PO SCH (20:06)
[2020-05-19] MEDS: METOCLOPRAMIDE HCL 10MG/2ML VIAL IV SCH (20:06)
[2020-05-19] MEDS: SUCRALFATE 1 G/10 ML UDC PO SCH (20:06)
[2020-05-20] VITALS (7 sets, daily range): BP systolic 95–118; BP diastolic 58–81
[2020-05-20] MEDS: IPRATROPIUM BROMIDE (0.02%) 0.5MG/2.5ML NEB HHN SCH ×4 (03:08→22:13)
[2020-05-20] MEDS: MEXILETINE HCL 150MG CAPSULE PO SCH ×4 (06:22→23:09)
[2020-05-20 06:39] LABS: BASOPHILS % 0.9 % (0.0-2.0); EOSINOPHILS % 5.8 % (0.0-5.0); HEMATOCRIT. 23.8 % (42.0-52.0); LYMPHOCYTES % 18.9 % (20.0-50.0); MEAN CORPUSCULAR HEMOGLOBIN 30.8 pg (28.0-32.0); MEAN CORPUSCULAR VOLUME 91.4 fL (80.0-94.0); MEAN PLATELET VOLUME 7.6 fl (7.4-10.4); MONOCYTES % 12.4 % (2.0-8.0); PLATELET 179 x1000/uL (130-400); RED BLOOD CELL COUNT 2.61 mill/uL (4.7-6.1); RED CELL DISTRIBUTION WIDTH 16.3 % (11.6-14.6)
[2020-05-20 06:51] LABS: PHOSPHORUS 2.6 mg/dL (2.5-4.9)
[2020-05-20] MEDS: LEVOFLOXACIN 500MG TABLET PO SCH (09:08)
[2020-05-20] MEDS: FOLIC ACID 1MG TABLET PO SCH (09:08)
[2020-05-20] MEDS: CITALOPRAM HYDROBROMIDE 10MG TABLET PO SCH (09:08)
[2020-05-20] MEDS: SUCRALFATE 1 G/10 ML UDC PO SCH ×3 (09:08→16:20)
[2020-05-20 09:09] LABS: IMMUNOGLOBULIN A 291 mg/dL (90-386); IMMUNOGLOBULIN G 1598 mg/dL (603-1613); IMMUNOGLOBULIN M 36 mg/dL (20-172)
[2020-05-20] MEDS: FUROSEMIDE 40MG/4ML VIAL IVP SCH ×2 (09:09→18:39)
[2020-05-20] MEDS: PSYLLIUM SEED PACKET PO SCH ×3 (09:09→13:17)
[2020-05-20] MEDS: FERROUS SULFATE 325MG TABLET PO SCH ×3 (09:09→16:20)
[2020-05-20] MEDS: METOCLOPRAMIDE HCL 10MG/2ML VIAL IV SCH ×4 (09:09→20:02)
[2020-05-20] MEDS: POTASSIUM-SODIUM PHOSPHATE POWDER PACKET PO SCH ×2 (09:09→16:19)
[2020-05-20] MEDS: RISPERIDONE 1MG TABLET PO SCH (09:10)
[2020-05-20] MEDS: AMIODARONE HCL 200 MG TABLET PO SCH (09:10)
[2020-05-20] MEDS ORDERED: POTASSIUM CHLORIDE 20MEQ TABLET SR PO SCH (12:00)
[2020-05-20] MEDS: MAGNESIUM OXIDE 400MG TABLET PO SCH (13:12)
[2020-05-20] MEDS ORDERED: METHYLPREDNISOLONE SOD SUCC 40 MG/ML VIAL IV SCH (13:15)
[2020-05-20] MEDS ORDERED: MAGNESIUM 2 G PREMIX 50 ML IV SCH (14:00)
[2020-05-20] MEDS: PANTOPRAZOLE SODIUM 40 MG/VIAL IV SCH ×2 (16:19→20:02)
[2020-05-20] MEDS: ATORVASTATIN CALCIUM 20MG TABLET PO SCH (20:02)
[2020-05-21] VITALS (7 sets, daily range): BP systolic 82–120; BP diastolic 50–76
[2020-05-21] MEDS: IPRATROPIUM BROMIDE (0.02%) 0.5MG/2.5ML NEB HHN SCH ×4 (05:06→20:40)
[2020-05-21] MEDS: MEXILETINE HCL 150MG CAPSULE PO SCH ×3 (05:20→22:13)
[2020-05-21 06:50] LABS: BASOPHILS % 0.7 % (0.0-2.0); CHLORIDE 102 mEq/L (98-107); EOSINOPHILS % 4.5 % (0.0-5.0); HEMATOCRIT. 24.2 % (42.0-52.0); HEMOGLOBIN. 8.1 g/dL (14.0-18.0); LYMPHOCYTES % 23.2 % (20.0-50.0); MEAN CORPUSCULAR HEMOGLOBIN 30.5 pg (28.0-32.0); MEAN PLATELET VOLUME 7.6 fl (7.4-10.4); MONOCYTES % 11.9 % (2.0-8.0); NEUTROPHILS % 59.7 % (40.0-76.0); PLATELET 173 x1000/uL (130-400); RED BLOOD CELL COUNT 2.66 mill/uL (4.7-6.1)
[2020-05-21 07:11] LABS: PHOSPHORUS 2.2 mg/dL (2.5-4.9)
[2020-05-21] MEDS: PSYLLIUM SEED PACKET PO SCH ×3 (09:21→17:33)
[2020-05-21] MEDS: METOCLOPRAMIDE HCL 10MG/2ML VIAL IV SCH ×4 (09:21→21:52)
[2020-05-21] MEDS: FERROUS SULFATE 325MG TABLET PO SCH ×3 (09:21→17:33)
[2020-05-21] MEDS: FUROSEMIDE 40MG/4ML VIAL IVP SCH ×2 (09:21→17:33)
[2020-05-21] MEDS: PANTOPRAZOLE SODIUM 40 MG/VIAL IV SCH ×2 (09:21→21:52)
[2020-05-21] MEDS: RISPERIDONE 1MG TABLET PO SCH (09:22)
[2020-05-21] MEDS: CITALOPRAM HYDROBROMIDE 10MG TABLET PO SCH (09:22)
[2020-05-21] MEDS: MAGNESIUM OXIDE 400MG TABLET PO SCH (09:22)
[2020-05-21] MEDS: POTASSIUM-SODIUM PHOSPHATE POWDER PACKET PO SCH ×2 (09:22→17:33)
[2020-05-21] MEDS: FOLIC ACID 1MG TABLET PO SCH (09:22)
[2020-05-21] MEDS: AMIODARONE HCL 200 MG TABLET PO SCH (09:22)
[2020-05-21] MEDS ORDERED: POTASSIUM CHLORIDE 20MEQ TABLET SR PO SCH (12:00)
[2020-05-21] MEDS: LEVOFLOXACIN 500MG TABLET PO SCH (12:03)
[2020-05-21] MEDS ORDERED: MAGNESIUM 2 G PREMIX 50 ML IV SCH (14:00)
[2020-05-21] MEDS: ATORVASTATIN CALCIUM 20MG TABLET PO SCH (21:53)
[2020-05-22] VITALS: BP 102/68
[2020-05-22] MEDS: IPRATROPIUM BROMIDE (0.02%) 0.5MG/2.5ML NEB HHN SCH ×3 (01:38→20:00)
[2020-05-22 04:00] VITALS: BP 91/61
[2020-05-22] MEDS: METOCLOPRAMIDE HCL 10MG/2ML VIAL IV SCH ×4 (06:48→21:32)
[2020-05-22 06:52] LABS: HEMATOCRIT. 24.2 % (42.0-52.0); HEMOGLOBIN. 8.1 g/dL (14.0-18.0); MEAN CORPUSCULAR HEMOGLOBIN 30.6 pg (28.0-32.0); MEAN PLATELET VOLUME 7.6 fl (7.4-10.4); PLATELET 170 x1000/uL (130-400); RED BLOOD CELL COUNT 2.66 mill/uL (4.7-6.1); RED CELL DISTRIBUTION WIDTH 15.6 % (11.6-14.6)
[2020-05-22 07:26] VITALS: BP 101/66
[2020-05-22] MEDS: FERROUS SULFATE 325MG TABLET PO SCH ×3 (08:33→17:24)
[2020-05-22] MEDS: MAGNESIUM OXIDE 400MG TABLET PO SCH (08:39)
[2020-05-22] MEDS: RISPERIDONE 1MG TABLET PO SCH (08:39)
[2020-05-22] MEDS: CITALOPRAM HYDROBROMIDE 10MG TABLET PO SCH (08:39)
[2020-05-22] MEDS: MEXILETINE HCL 150MG CAPSULE PO SCH ×3 (08:39→21:39)
[2020-05-22] MEDS: POTASSIUM-SODIUM PHOSPHATE POWDER PACKET PO SCH ×2 (08:39→17:22)
[2020-05-22] MEDS: AMIODARONE HCL 200 MG TABLET PO SCH (08:39)
[2020-05-22] MEDS: PSYLLIUM SEED PACKET PO SCH ×3 (08:39→17:22)
[2020-05-22] MEDS: FOLIC ACID 1MG TABLET PO SCH (08:40)
[2020-05-22] MEDS: PANTOPRAZOLE SODIUM 40 MG/VIAL IV SCH ×2 (08:40→21:32)
[2020-05-22] MEDS: FUROSEMIDE 40MG/4ML VIAL IVP SCH ×2 (08:40→17:24)
[2020-05-22] MEDS ORDERED: POTASSIUM CHLORIDE 20MEQ TABLET SR PO SCH (09:50)
[2020-05-22 10:33] LABS: PLATELET ESTIMATE NORMAL
[2020-05-22 12:25] VITALS: BP 110/64
[2020-05-22 16:22] VITALS: BP 106/64
[2020-05-22] MEDS: APIXABAN 5 MG TABLET PO SCH (17:29)
[2020-05-22 19:45] VITALS: BP 96/68
[2020-05-22] MEDS: ATORVASTATIN CALCIUM 20MG TABLET PO SCH (21:32)
[2020-05-23] VITALS: BP 103/67
[2020-05-23] MEDS: IPRATROPIUM BROMIDE (0.02%) 0.5MG/2.5ML NEB HHN SCH ×2 (01:48→08:06)
[2020-05-23 04:00] VITALS: BP 97/71
[2020-05-23] MEDS: MEXILETINE HCL 150MG CAPSULE PO SCH ×3 (06:00→21:11)
[2020-05-23] MEDS: METOCLOPRAMIDE HCL 10MG/2ML VIAL IV SCH ×4 (06:33→21:12)
[2020-05-23 08:00] VITALS: BP 97/74
[2020-05-23] MEDS: POTASSIUM-SODIUM PHOSPHATE POWDER PACKET PO SCH ×3 (08:37→17:28)
[2020-05-23] MEDS: PANTOPRAZOLE SODIUM 40 MG/VIAL IV SCH ×2 (08:37→21:12)
[2020-05-23] MEDS: MAGNESIUM OXIDE 400MG TABLET PO SCH (08:38)
[2020-05-23] MEDS: FERROUS SULFATE 325MG TABLET PO SCH ×3 (08:38→17:28)
[2020-05-23] MEDS: APIXABAN 5 MG TABLET PO SCH ×2 (08:38→17:28)
[2020-05-23] MEDS: FOLIC ACID 1MG TABLET PO SCH (08:38)
[2020-05-23] MEDS: CITALOPRAM HYDROBROMIDE 10MG TABLET PO SCH (08:38)
[2020-05-23] MEDS: AMIODARONE HCL 200 MG TABLET PO SCH (08:39)
[2020-05-23] MEDS: FUROSEMIDE 40MG/4ML VIAL IVP SCH ×2 (08:39→17:28)
[2020-05-23] MEDS: RISPERIDONE 1MG TABLET PO SCH (08:44)
[2020-05-23] MEDS: PSYLLIUM SEED PACKET PO SCH ×4 (08:44→17:00)
[2020-05-23 09:23] LABS: HEMATOCRIT. 24.3 % (42.0-52.0); MEAN CORPUSCULAR HEMOGLOBIN 30.1 pg (28.0-32.0); MEAN CORPUSCULAR VOLUME 90.9 fL (80.0-94.0); MEAN PLATELET VOLUME 7.4 fl (7.4-10.4); PLATELET 171 x1000/uL (130-400); RED BLOOD CELL COUNT 2.67 mill/uL (4.7-6.1); RED CELL DISTRIBUTION WIDTH 15.6 % (11.6-14.6)
[2020-05-23 09:52] LABS: PHOSPHORUS 1.6 mg/dL (2.5-4.9)
[2020-05-23] MEDS ORDERED: POTASSIUM CHLORIDE 20MEQ TABLET SR PO SCH (11:00)
[2020-05-23 12:00] VITALS: BP 107/89
[2020-05-23] MEDS ORDERED: MAGNESIUM 1 G PREMIX 100 ML IV SCH (12:00)
[2020-05-23 12:39] LABS: PLATELET ESTIMATE NORMAL
[2020-05-23 16:30] VITALS: BP 107/74
[2020-05-23 19:37] VITALS: BP 99/79
[2020-05-23] MEDS: ATORVASTATIN CALCIUM 20MG TABLET PO SCH (21:12)
[2020-05-24] VITALS: BP 113/80
[2020-05-24 04:00] VITALS: BP 111/79
[2020-05-24] MEDS: MEXILETINE HCL 150MG CAPSULE PO SCH ×3 (06:27→22:00)
[2020-05-24] MEDS: METOCLOPRAMIDE HCL 10MG/2ML VIAL IV SCH (06:27)
[2020-05-24 07:11] LABS: BASOPHILS % 0.8 % (0.0-2.0); HEMATOCRIT. 24.8 % (42.0-52.0); HEMOGLOBIN. 8.4 g/dL (14.0-18.0); LYMPHOCYTES % 32.8 % (20.0-50.0); MEAN CORPUSCULAR HEMOGLOBIN 30.7 pg (28.0-32.0); MEAN CORPUSCULAR VOLUME 90.9 fL (80.0-94.0); MEAN PLATELET VOLUME 7.6 fl (7.4-10.4); MONOCYTES % 13.9 % (2.0-8.0); NEUTROPHILS % 43.5 % (40.0-76.0); PLATELET 175 x1000/uL (130-400); RED BLOOD CELL COUNT 2.72 mill/uL (4.7-6.1)
[2020-05-24 07:47] LABS: PHOSPHORUS 1.6 mg/dL (2.5-4.9)
[2020-05-24 08:00] VITALS: BP 106/80
[2020-05-24] MEDS: PSYLLIUM SEED PACKET PO SCH ×3 (09:00→17:00)
[2020-05-24] MEDS ORDERED: FUROSEMIDE 40MG/4ML VIAL IVP SCH (09:00)
[2020-05-24] MEDS: POTASSIUM-SODIUM PHOSPHATE POWDER PACKET PO SCH ×2 (09:33→18:03)
[2020-05-24] MEDS: FERROUS SULFATE 325MG TABLET PO SCH ×3 (09:34→18:03)
[2020-05-24] MEDS: AMIODARONE HCL 200 MG TABLET PO SCH (09:34)
[2020-05-24] MEDS: PANTOPRAZOLE SODIUM 40 MG/VIAL IV SCH (09:34)
[2020-05-24] MEDS: CITALOPRAM HYDROBROMIDE 10MG TABLET PO SCH (09:35)
[2020-05-24] MEDS: APIXABAN 5 MG TABLET PO SCH ×2 (09:35→18:03)
[2020-05-24] MEDS: FOLIC ACID 1MG TABLET PO SCH (09:35)
[2020-05-24] MEDS: MAGNESIUM OXIDE 400MG TABLET PO SCH (09:35)
[2020-05-24] MEDS: RISPERIDONE 1MG TABLET PO SCH (09:35)
[2020-05-24] MEDS ORDERED: POTASSIUM PHOS,M-BASIC-D-BASIC 30 MMOL in SODIUM CHLORIDE 0.9% 500 ML IV SCH (11:00)
[2020-05-24] MEDS ORDERED: POTASSIUM CHLORIDE 20MEQ TABLET SR PO NR (11:45)
[2020-05-24 12:00] VITALS: BP 109/88
[2020-05-24 16:00] VITALS: BP 102/86
[2020-05-24 19:51] VITALS: BP 92/66
[2020-05-24] MEDS: FUROSEMIDE 40MG TABLET PO SCH (22:16)
[2020-05-24] MEDS: PANTOPRAZOLE 40MG DR TABLET PO SCH (22:16)
[2020-05-24] MEDS: ATORVASTATIN CALCIUM 20MG TABLET PO SCH (22:16)
[2020-05-25] VITALS: BP 107/74
[2020-05-25 04:00] VITALS: BP 118/73
[2020-05-25] MEDS: MEXILETINE HCL 150MG CAPSULE PO SCH ×3 (06:55→21:39)
[2020-05-25] MEDS: PANTOPRAZOLE 40MG DR TABLET PO SCH ×2 (06:56→21:40)
[2020-05-25 07:34] LABS: BASOPHILS % 1.1 % (0.0-2.0); EOSINOPHILS % 11.6 % (0.0-5.0); HEMATOCRIT. 25.3 % (42.0-52.0); HEMOGLOBIN. 8.5 g/dL (14.0-18.0); LYMPHOCYTES % 35.1 % (20.0-50.0); MEAN CORPUSCULAR HEMOGLOBIN 30.5 pg (28.0-32.0); MEAN CORPUSCULAR VOLUME 90.6 fL (80.0-94.0); MEAN PLATELET VOLUME 7.8 fl (7.4-10.4); MONOCYTES % 13.8 % (2.0-8.0); NEUTROPHILS % 38.4 % (40.0-76.0); PLATELET 176 x1000/uL (130-400); RED BLOOD CELL COUNT 2.79 mill/uL (4.7-6.1); RED CELL DISTRIBUTION WIDTH 15.6 % (11.6-14.6)
[2020-05-25 07:44] LABS: PHOSPHORUS 2.8 mg/dL (2.5-4.9)
[2020-05-25 08:00] VITALS: BP 114/84
[2020-05-25] MEDS: APIXABAN 5 MG TABLET PO SCH ×2 (08:32→16:59)
[2020-05-25] MEDS: FERROUS SULFATE 325MG TABLET PO SCH ×3 (08:32→16:50)
[2020-05-25] MEDS: CITALOPRAM HYDROBROMIDE 10MG TABLET PO SCH (08:32)
[2020-05-25] MEDS: AMIODARONE HCL 200 MG TABLET PO SCH (08:32)
[2020-05-25] MEDS: MAGNESIUM OXIDE 400MG TABLET PO SCH (08:32)
[2020-05-25] MEDS: FUROSEMIDE 40MG TABLET PO SCH (08:32)
[2020-05-25] MEDS: PSYLLIUM SEED PACKET PO SCH ×3 (08:33→16:51)
[2020-05-25] MEDS: RISPERIDONE 1MG TABLET PO SCH (08:33)
[2020-05-25] MEDS: POTASSIUM-SODIUM PHOSPHATE POWDER PACKET PO SCH ×2 (08:33→16:59)
[2020-05-25] MEDS: FOLIC ACID 1MG TABLET PO SCH (08:34)
[2020-05-25 12:00] VITALS: BP 102/68
[2020-05-25] MEDS ORDERED: GABAPENTIN 100MG CAPSULE PO PRN (15:15)
[2020-05-25] MEDS ORDERED: TRAZODONE HCL 50MG TABLET PO PRN (15:15)
[2020-05-25 15:56] VITALS: BP 110/77
[2020-05-25 20:00] VITALS: BP 107/75
[2020-05-25] MEDS: ATORVASTATIN CALCIUM 20MG TABLET PO SCH (21:40)
[2020-05-26] VITALS: BP 121/77
[2020-05-26 04:00] VITALS: BP 124/88
[2020-05-26] MEDS: PANTOPRAZOLE 40MG DR TABLET PO SCH (06:28)
[2020-05-26] MEDS: MEXILETINE HCL 150MG CAPSULE PO SCH ×2 (06:28→13:38)
[2020-05-26 07:05] LABS: BASOPHILS % 0.3 % (0.0-2.0); EOSINOPHILS % 10.3 % (0.0-5.0); HEMATOCRIT. 24.6 % (42.0-52.0); LYMPHOCYTES % 39.5 % (20.0-50.0); MEAN CORPUSCULAR HEMOGLOBIN 29.3 pg (28.0-32.0); MEAN CORPUSCULAR VOLUME 89.6 fL (80.0-94.0); MEAN PLATELET VOLUME 7.8 fl (7.4-10.4); MONOCYTES % 14.4 % (2.0-8.0); NEUTROPHILS % 35.5 % (40.0-76.0); PLATELET 166 x1000/uL (130-400); RED BLOOD CELL COUNT 2.75 mill/uL (4.7-6.1); RED CELL DISTRIBUTION WIDTH 15.7 % (11.6-14.6)
[2020-05-26 07:44] LABS: PHOSPHORUS 2.5 mg/dL (2.5-4.9)
[2020-05-26 08:00] VITALS: BP 107/81
[2020-05-26] MEDS: PSYLLIUM SEED PACKET PO SCH ×2 (08:53→13:00)
[2020-05-26] MEDS: POTASSIUM-SODIUM PHOSPHATE POWDER PACKET PO SCH (08:53)
[2020-05-26] MEDS: RISPERIDONE 1MG TABLET PO SCH (08:54)
[2020-05-26] MEDS: FERROUS SULFATE 325MG TABLET PO SCH ×2 (08:54→13:38)
[2020-05-26] MEDS: APIXABAN 5 MG TABLET PO SCH (08:54)
[2020-05-26] MEDS: AMIODARONE HCL 200 MG TABLET PO SCH (08:54)
[2020-05-26] MEDS: MAGNESIUM OXIDE 400MG TABLET PO SCH (08:54)
[2020-05-26] MEDS: FOLIC ACID 1MG TABLET PO SCH (08:54)
[2020-05-26] MEDS: CITALOPRAM HYDROBROMIDE 10MG TABLET PO SCH (08:55)
[2020-05-26] MEDS ORDERED: FUROSEMIDE 40MG TABLET PO SCH (09:00)
[2020-05-26 12:00] VITALS: BP 117/87
[2020-05-26] MEDS ORDERED: APIX5TAB PO (12:05)
[2020-05-26] MEDS ORDERED: AMI2 PO (12:05)
[2020-05-26] MEDS ORDERED: ATOR20TA65 PO (12:05)
[2020-05-26] MEDS ORDERED: TOPUD PO (12:05)
[2020-05-26] MEDS ORDERED: NAPH1POW3 PO (12:06)
[2020-05-26] MEDS ORDERED: RISP1 PO (12:06)
[2020-05-26] MEDS ORDERED: MEX150 PO (12:06)
[2020-05-26] MEDS ORDERED: PANT40TA51 PO (12:06)
[2020-05-26] MEDS ORDERED: DOCU250C14 PO (12:06)
[2020-05-26] MEDS ORDERED: SENN1TAB35 PO (12:06)
[2020-05-26] MEDS ORDERED: FURO40TA5 PO (12:06)
[2020-05-26] MEDS ORDERED: FERR325T23 PO (12:06)
[2020-05-26] MEDS ORDERED: CITA10TA16 PO (12:06)
[2020-05-26] MEDS ORDERED: PSYL3.4P5 PO (12:06)
[2020-05-26] MEDS ORDERED: FOLI-43 PO (12:06)
[2020-05-26] MEDS ORDERED: MAGNESIUM 1 G PREMIX 100 ML IV NR (13:00)
[2020-05-26 15:20] VITALS: BP 145/82
[2020-05-26 15:46] VITALS: BP 145/82
== END 2020-05-26 17:40 | disposition home or self-care (01) | DRG 917 ==
LOC: ER 16:45 → 6WST 20:46 → CANRESERV 05-09 03:08 → ENRESERV 05-09 03:08 → 6WST 05-09 08:02
PROVIDERS: ADMIT Family Medicine Adult Medicine; ATTEND Family Medicine Adult Medicine
PROC: 4B02XTZ Measurement of Cardiac Defibrillator, External Approach (ICD-10-PCS; 2020-05-11)
PROC: 30233N1 Transfusion of Nonautologous Red Blood Cells into Peripheral Vein, Percutaneous Approach (ICD-10-PCS; 2020-05-18)
PROC: 0DB78ZX Excision of Stomach, Pylorus, Via Natural or Artificial Opening Endoscopic, Diagnostic (ICD-10-PCS; principal; 2020-05-23)
PROC: 0DB98ZX Excision of Duodenum, Via Natural or Artificial Opening Endoscopic, Diagnostic (ICD-10-PCS; 2020-05-23)
DX: T40.602A Poisoning by unspecified narcotics, intentional self-harm, initial encounter (principal); J96.01 Acute respiratory failure with hypoxia; G92 Toxic encephalopathy; I49.01 Ventricular fibrillation; N17.0 Acute kidney failure with tubular necrosis; I50.23 Acute on chronic systolic (congestive) heart failure; J18.9 Pneumonia, unspecified organism; J96.02 Acute respiratory failure with hypercapnia; R45.851 Suicidal ideations; I48.20 Chronic atrial fibrillation, unspecified; N18.4 Chronic kidney disease, stage 4 (severe); E87.2 Acidosis; I13.0 Hypertensive heart and chronic kidney disease with heart failure and stage 1 through stage 4 chronic kidney disease, or unspecified chronic kidney disease; I42.0 Dilated cardiomyopathy; I69.351 Hemiplegia and hemiparesis following cerebral infarction affecting right dominant side; D62 Acute posthemorrhagic anemia; J91.8 Pleural effusion in other conditions classified elsewhere; K22.10 Ulcer of esophagus without bleeding; F32.9 Major depressive disorder, single episode, unspecified; R45.850 Homicidal ideations; E66.9 Obesity, unspecified; D50.9 Iron deficiency anemia, unspecified; D63.1 Anemia in chronic kidney disease; E16.2 Hypoglycemia, unspecified; E78.5 Hyperlipidemia, unspecified; E83.39 Other disorders of phosphorus metabolism; E83.42 Hypomagnesemia; E87.6 Hypokalemia; F10.10 Alcohol abuse, uncomplicated; F15.10 Other stimulant abuse, uncomplicated; G47.00 Insomnia, unspecified; I48.0 Paroxysmal atrial fibrillation; I25.10 Atherosclerotic heart disease of native coronary artery without angina pectoris; Z20.822 Contact with and (suspected) exposure to COVID-19; K56.41 Fecal impaction; K80.20 Calculus of gallbladder without cholecystitis without obstruction; K29.70 Gastritis, unspecified, without bleeding; K21.9 Gastro-esophageal reflux disease without esophagitis; J45.909 Unspecified asthma, uncomplicated; S31.119A Laceration without foreign body of abdominal wall, unspecified quadrant without penetration into peritoneal cavity, initial encounter; X78.1XXA Intentional self-harm by knife, initial encounter; I95.9 Hypotension, unspecified; I25.2 Old myocardial infarction; Z82.49 Family history of ischemic heart disease and other diseases of the circulatory system; Z95.810 Presence of automatic (implantable) cardiac defibrillator; Z68.33 Body mass index [BMI] 33.0-33.9, adult; Z79.899 Other long term (current) drug therapy; Z79.84 Long term (current) use of oral hypoglycemic drugs; Z79.01 Long term (current) use of anticoagulants; Y93.89 Activity, other specified; Y92.89 Other specified places as the place of occurrence of the external cause; Y99.8 Other external cause status; Z76.82 Awaiting organ transplant status; F19.10 Other psychoactive substance abuse, uncomplicated
CPT/HCPCS: 36415; 36600; 71045; 71046; 72192; 73700; 74176; 76770; 80048; 80053; 80305; 80320; 81003; 82270; 82375; 82550; 82607; 82728; 82746; 82784; 82805; 83540; 83550; 83605; 83735; 83880; 84100; 84443; 84484; 85014; 85018; 85025; 85044; 86256; 86334; 86671; 86850; 86900; 86920; 87015; 87045; 87426; 87427; 87449; 88305; 88313; 89055; 90715; 93005; 93306; 93970; 94640; 97110; 97116; 97162; 97166; 97530; 97535; 99285; C1893; C9113; J0885; J1200; J1940; J2250; J2704; J2765; J2920; J3010; J3475; J3490; J7030; J7040; J7060; P9016; U0003; G0480